=== PATIENT | male | born 1955 | race African-American/Black ===

== ENCOUNTER → 2016-10-19 | Outpatient (CLI) | payer OTHER ==
[2016-10-19 12:01] LABS: Basophils % (A) 1 %; CH 27.1; CHCM 32.4; Eosinophils # (A) 0.1 k/uL (0-0.7); Eosinophils % (A) 2 %; HCT 43.4 % (39.0-53.0); HDW 2.46; HGB 13.9 gm/dL (13.0-17.5); Luc # (Auto) 0.06; Luc % (Auto) 2; Lymphocytes # (A) 1.2 k/uL (1.0-4.8); Lymphocytes % (A) 32 %; MCH 26.9 pg (25.0-35.0); MCV 84.1 fL (80.0-100.0); Mean Platelet Volume 7.1; Monocytes # (A) 0.3 k/uL (0-1.0); Monocytes % (A) 7 %; Neutrophils # (A) 2.1 k/uL (1.3-7.7); Neutrophils % (A) 57 %; RBC 5.17 m/uL (4.30-5.90); RDW 14.4 % (11.5-15.5); WBC 3.7 k/uL (3.8-10.6); WBC (Perox) 3.79
[2016-10-19 12:15] LABS: ALT 33 U/L (21-72); AST 22 U/L (17-59); Alkaline Phosphatase 49 U/L (38-126); Anion Gap 12 mmol/L; Blood Urea Nitrogen 13 mg/dL (9-20); Calcium 9.8 mg/dL (8.4-10.2); Carbon Dioxide 27 mmol/L (22-30); Chloride 102 mmol/L (98-107); Cholesterol 174 mg/dL (<200); Glucose 87 mg/dL (74-99); HDL Cholesterol 70 mg/dL (40-60); Non-African American GFR(MDRD) >60 (>60 ml/min/1.73 sqM); Potassium 4.4 mmol/L (3.5-5.1); Sodium 141 mmol/L (137-145); Total Bilirubin 1.1 mg/dL (0.2-1.3); Total Protein 7.4 g/dL (6.3-8.2); Triglycerides 36 mg/dL (<150)
== END | disposition home or self-care (01) ==
LOC: LABWHC1 11:30
PROVIDERS: ATTEND Family Medicine
DX: I10 Essential (primary) hypertension (principal); Z79.899 Other long term (current) drug therapy; Z13.220 Encounter for screening for lipoid disorders; Z13.29 Encounter for screening for other suspected endocrine disorder; Z12.5 Encounter for screening for malignant neoplasm of prostate
CPT/HCPCS: 80061; 80053; 84443; 85025; 36415; G0103

== ENCOUNTER → 2018-11-21 | Outpatient (CLI) | payer OTHER ==
[2018-11-21 10:54] LABS: Basophils % (A) 0 %; Eosinophils % (A) 1 %; HCT 43.4 % (39.0-53.0); HGB 13.5 gm/dL (13.0-17.5); Lymphocytes # (A) 0.8 k/uL (1.0-4.8); Lymphocytes % (A) 15 %; MCH 25.9 pg (25.0-35.0); MCHC 31.1 g/dL (31.0-37.0); MCV 83.4 fL (80.0-100.0); Mean Platelet Volume 6.7; Monocytes # (A) 0.2 k/uL (0-1.0); Monocytes % (A) 3 %; Neutrophils # (A) 4.2 k/uL (1.3-7.7); Neutrophils % (A) 81 %; Platelet Count 223 k/uL (150-450); RDW 15.9 % (11.5-15.5); WBC 5.2 k/uL (3.8-10.6)
[2018-11-21 16:33] LABS: Albumin 4.4 g/dL (3.80-4.90); Albumin/Globulin Ratio 1.83 (1.60-3.17); Anion Gap 7.2 mmol/L (4.00-12.00); Calcium 9.6 mg/dL (8.7-10.3); Carbon Dioxide 27.8 mmol/L (21.6-31.8); Globulin 2.4 g/dL (1.6-3.3); LDL Cholesterol,Calculated 104.4 mg/dL (0.0-131.0); Potassium 4.3 mmol/L (3.5-5.5); Total Bilirubin 0.8 mg/dL (0.3-1.2); Total Protein 6.8 g/dL (6.2-8.2); VLDL Calculation 11.6 mg/dL (5.00-40.00)
== END ==
LOC: LABWHC1 10:11
PROVIDERS: ATTEND Family Medicine
DX: Z00.00 Encounter for general adult medical examination without abnormal findings (principal); Z13.1 Encounter for screening for diabetes mellitus; Z13.0 Encounter for screening for diseases of the blood and blood-forming organs and certain disorders involving the immune mechanism; Z12.5 Encounter for screening for malignant neoplasm of prostate
CPT/HCPCS: 80061; 80053; 85025; 36415; G0103

== ENCOUNTER 2019-12-14 22:36 | Observation (INO) | payer OTHER ==
[2019-12-14] MEDS ORDERED: ACETAMINOPHEN TAB 500 MG TAB PO STA (22:47)
[2019-12-14] MEDS ORDERED: SODIUM CHLORIDE 0.9% 500 ML 500 ML IV STA (22:47)
--- NOTE | 2019-12-14 23:14 | XR ---
EXAMINATION TYPE: XR chest 1V portable DATE OF EXAM: 12/14/2019 COMPARISON: 04/21/2014 HISTORY: Short of breath TECHNIQUE: FINDINGS: Heart and mediastinum appear normal. Lungs are clear of infiltrate. There is no pleural eff usion or pneumothorax. Bony thorax is intact. IMPRESSION: No active cardiopulmonary disease. Normal heart. No change.
--- NOTE | 2019-12-14 23:16 | ED ---
SOB HPI - General Chief Complaint: Upper Respiratory Infection Stated Complaint: Fever, SOB Time Seen by Provider: 12/14/19 22:47 Source: patient, RN notes reviewed, old records reviewed Mode of arrival: ambulatory Limitations: no limitations - History of Present Illness Initial Comments: This is a 64-year-old male DF for evaluation with history of asthma presents today with fever cough or congestion, patient denying chest pain. Patient has history of asthma patient has no recent travel history or sick contacts he has noted feels like a fever at home with chills facial swelling but no significant shortness of breath. Patient has multiple hospital inpatient admissions prior for similar issues. Patient has hypertension otherwise. No current smoking history. Again patient denies melena similar sick contacts, patient has been doing social isolation. He is increased cough which bili prior asthma exacerbation MD Complaint: shortness of breath, cough -: week(s) Severity: mild Severity scale (1-10): 3 Consistency: intermittent Improves With: rest, bronchodilators Known History Of: COPD, asthma Context: recent URI Associated Symptoms: cough, sputum production Treatments Prior to Arrival: bronchodilator - Related Data Home Medications Medication Instructions Recorded Confirmed Lisinopril [Prinivil] 20 mg PO QAM 06/08/14 09/20/14 amLODIPine [Norvasc] 10 mg PO DAILY 06/27/14 09/20/14 Previous Rx's Medication Instructions Recorded Azithromycin [Zithromax Z-pack] 1 pack PO DIRECTED #6 tab 09/20/14 methylPREDNISolone [Medrol] 1 pack PO DIRECTED #1 tab.ds.pk 09/20/14 Allergies Allergy/AdvReac Type Severity Reaction Status Date / Time No Known Allergies Allergy Verified 12/14/19 22:41 Review of Systems ROS Statement: Those systems with pertinent positive or pertinent negative responses have been documented in the HPI. ROS Other: All systems not noted in ROS Statement are negative. Past Medical History Past Medical History: Hypertension History of Any Multi-Drug Resistant Organisms: None Reported Past Surgical History: Orthopedic Surgery, Tonsillectomy Past Psychological History: No Psychological Hx Reported Smoking Status: Never smoker Past Alcohol Use History: None Reported Past Drug Use History: None Reported General Exam Limitations: no limitations General appearance: alert, in no apparent distress Head exam: Present: atraumatic, normocephalic, normal inspection Eye exam: Present: normal appearance, PERRL, EOMI. Absent: scleral icterus, conjunctival injection, periorbital swelling ENT exam: Present: normal exam, mucous membranes moist Neck exam: Present: normal inspection. Absent: tenderness, meningismus, lymphadenopathy Respiratory exam: Present: wheezes. Absent: normal lung sounds bilaterally, respiratory distress, rales, rhonchi, stridor Cardiovascular Exam: Present: regular rate, normal rhythm, normal heart sounds. Absent: systolic murmur, diastolic murmur, rubs, gallop, clicks GI/Abdominal exam: Present: soft, normal bowel sounds. Absent: distended, tenderness, guarding, rebound, rigid Extremities exam: Present: normal inspection, full ROM, normal capillary refill. Absent: tenderness, pedal edema, joint swelling, calf tenderness Back exam: Present: normal inspection Neurological exam: Present: alert, oriented X3, CN II-XII intact Psychiatric exam: Present: normal affect, normal mood Skin exam: Present: warm, dry, intact, normal color. Absent: rash Course Vital Signs 12/14/19 12/14/19 12/14/19 22:37 23:44 23:59 Temperature 100.5 F H Pulse Rate 75 75 75 Respiratory 18 Rate Blood Pressure 147/91 O2 Sat by Pulse 98 Oximetry - Reevaluation(s) Reevaluation #1: 12/14/19 23:53 Medical records reviewed Reevaluation #2: 12/14/19 23:53 Patient's in no significant acute distress Medical Decision Making - Medical Decision Making 61 female DF for evaluation history of asthma presenting with asthma exa cerbation. Chest x-ray shows no infiltrate pneumonia, no significant acute disease. Patient is given breathing treatment with surrounding with cough and congestion patient has disconcerting absolute neutrophil count / lymphocytes, will admit for observation - Lab Data Result diagrams: 12/14/19 23:20 12/14/19 23:20 Lab Results 12/14/19 12/14/19 12/14/19 Range/Units 23:20 23: 23:20 WBC 3.2 L (3.8-10.6) k/uL RBC 5.29 (4.30-5.90) m/uL Hgb 13.8 (13.0-17.5) gm/dL Hct 42.5 (39.0-53.0) % MCV 80.4 (80.0-100.0) fL MCH 26.1 (25.0-35.0) pg MCHC 32.4 (31.0-37.0) g/dL RDW 14.4 (11.5-15.5) % Plt Count 123 L (150-450) k/uL Neutrophils % 74 % Lymphocytes % 17 % Monocytes % 6 % Eosinophils % 0 % Basophils % 0 % Neutrophils # 2.4 (1.3-7.7) k/uL Lymphocytes # 0.6 L (1.0-4.8) k/uL Monocytes # 0.2 (0-1.0) k/uL Eosinophils # 0.0 (0-0.7) k/uL Basophils # 0.0 (0-0.2) k/uL Sodium 136 L (137-145) mmol/L Potassium 4.0 (3.5-5.1) mmol/L Chloride 103 (98-107) mmol/L Carbon Dioxide 23 (22-30) mmol/L Anion Gap 10 mmol/L BUN 20 (9-20) mg/dL Creatinine 1.03 (0.66-1.25) mg/dL Est GFR (CKD-EPI)AfAm 89 (>60 ml/min/1.73 sqM) Est GFR (CKD-EPI)NonAf 77 (>60 ml/min/1.73 sqM) Glucose 108 H (74-99) mg/dL Plasma Lactic Acid Thien 0.8 (0.7-2.0) mmol/L Calcium 8.4 (8.4-10.2) mg/dL Phosphorus 2.9 (2.5-4.5) mg/dL Magnesium 2.1 (1.6-2.3) mg/dL Total Bilirubin 0.4 (0.2-1.3) mg/dL AST 32 (17-59) U/L ALT 21 (4-49) U/L Alkaline Phosphatase 41 (38-126) U/L Creatine Kinase 79 (55-170) U/L Total Protein 6.8 (6.3-8.2) g/dL Albumin 3.8 (3.5-5.0) g/dL - EKG Data -: EKG Interpreted by Me (EKG shows sinus rhythm rate of 60, NE, QRS 84, QTc 4:30) - Radiology Data Radiology results: report reviewed (Chest x-ray shows no significant acute disease), image reviewed Disposition Clinical Impression: Acute asthma exacerbation, Fever Disposition: ADMITTED IP TO THIS HOSP Condition: Good Instructions (If sedation given, give patient instructions): Asthma (ED) Is patient prescribed a controlled substance at d/c from ED?: No Referrals: Michele Valle MD [Primary Care Provider] - 1-2 days
[2019-12-14] MEDS ORDERED: DEXAMETHASONE SOD PHOSPHATE 10 MG/ML 1 ML VIAL IV STA (23:19)
[2019-12-14] MEDS ORDERED: IPRATROPIUM-ALBUTEROL 3 ML NEB INHALATION STA (23:19)
[2019-12-14 23:57] LABS: Basophils % (A) 0 %; Eosinophils % (A) 0 %; HCT 42.5 % (39.0-53.0); HGB 13.8 gm/dL (13.0-17.5); Lymphocytes # (A) 0.6 k/uL (1.0-4.8); Lymphocytes % (A) 17 %; MCH 26.1 pg (25.0-35.0); MCHC 32.4 g/dL (31.0-37.0); MCV 80.4 fL (80.0-100.0); Mean Platelet Volume 7.4; Monocytes # (A) 0.2 k/uL (0-1.0); Monocytes % (A) 6 %; Neutrophils # (A) 2.4 k/uL (1.3-7.7); Neutrophils % (A) 74 %; Platelet Count 123 k/uL (150-450); RBC 5.29 m/uL (4.30-5.90); RDW 14.4 % (11.5-15.5); WBC 3.2 k/uL (3.8-10.6)
[2019-12-15 00:01] LABS: Albumin 3.8 g/dL (3.5-5.0); Calcium 8.4 mg/dL (8.4-10.2); Magnesium 2.1 mg/dL (1.6-2.3); Phosphorus 2.9 mg/dL (2.5-4.5); Total Bilirubin 0.4 mg/dL (0.2-1.3); Total Protein 6.8 g/dL (6.3-8.2)
[2019-12-15] MEDS ORDERED: AZITHROMYCIN 500 MG in SODIUM CHLORIDE 0.9% 250 ML IVPB STA (00:22)
[2019-12-15] MEDS ORDERED: SODIUM CHLORIDE 0.9% 1,000 ML IV SCH (00:30)
[2019-12-15] MEDS ORDERED: IPRATROPIUM-ALBUTEROL 3 ML NEB INHALATION SCH (08:00)
[2019-12-15 08:08] VITALS: BP 162/86; PULSE 52; RESP 17; TEMP 97.5
[2019-12-15] MEDS ORDERED: ENOXAPARIN 40 MG/0.4 ML SYRINGE SQ SCH (09:00)
[2019-12-15] MEDS ORDERED: amLODIPine 10 MG TAB PO SCH (10:15)
[2019-12-15] MEDS ORDERED: LISINOPRIL 20 MG TAB PO SCH (10:15)
[2019-12-15] MEDS: ALBUTEROL INHALER 60 PUFF/8 GM INHALER (BULK) INHALATION SCH ×2 (10:19)
--- NOTE | 2019-12-15 12:05 | P.CNPUL ---
History of Present Illness Consult date: 12/15/19 Reason for consult: cough, asthma History of present illness: 64-year-old -[place] male patient with known history of bronchial asthma. The patient comes in with increased cough and congestion and low-grade fevers. He was in [place] for the past 1 week and he came back to [facility] yesterday. He was feeling sick during his stay in the [facility] and he felt that he was having symptoms of asthma exacerbation. He typically uses Ventolin rescue inhaler at home. For now, the patient has a low-grade fever of 100.5. In terms of his blood work, the patient has a white cell count of 3.2, platelet count of 123. Electrolytes were all within normal limits. Influenza screen was negative. Troponin is negative. CPK was 79. The patient's chest x- ray is within normal limits. The patient is currently on room air oxygen and the patient's pulse ox is 99%. Review of Systems Constitutional: Reports fatigue, Reports fever Eyes: denies as per HPI, denies blurred vision, denies bulging eye, denies decreased vision, denies diplopia, denies discharge, denies dry eye, denies irritation, denies itching, denies pain, denies photophobia, denies loss of peripheral vision, denies loss of vision, denies tunnel vision/blind spots Ears: deny: decreased hearing, ear discharge, earache, tinnitus Ears, nose, mouth and throat: Denies headache, Denies sore throat Breasts: absent: as per HPI, gynecomastia Cardiovascular: Denies chest pain, Denies shortness of breath Respiratory: Reports cough, Reports dyspnea Gastrointestinal: Denies abdominal pain, Denies diarrhea, Denies nausea, Denies vomiting Genitourinary: Reports as per HPI Musculoskeletal: Reports as per HPI Musculoskeletal: absent: ankle pain, ankle stiffness, ankle swelling Integumentary: Reports as per HPI Neurological: Reports as per HPI Psychiatric: Reports as per HPI Endocrine: Reports as per HPI Hematologic/Lymphatic: Reports as per HPI Allergic/Immunologic: Reports as per HPI Past Medical History Past Medical History: Asthma, Hypertension History of Any Multi-Drug Resistant Organisms: None Reported Past Surgical History: Orthopedic Surgery, Tonsillectomy Additional Past Surgical History / Comment(s): right rotator cuff Past Anesthesia/Blood Transfusion Reactions: No Reported Reaction Past Psychological History: No Psychological Hx Reported Smoking Status: Never smoker Past Alcohol Use History: None Reported Past Drug Use History: None Reported - Past Family History Mother Family Medical History: CVA/TIA, Hypertension, Myocardial Infarction ([place]) Father Family Medical History: Prostate Disorder Medications and Allergies Home Medications Medication Instructions Recorded Confirmed Type Lisinopril [Prinivil] 20 mg PO QAM 06/08/14 12/15/19 History amLODIPine [Norvasc] 10 mg PO DAILY 06/27/14 12/15/19 History Albuterol Inhaler [Ventolin Hfa 1 - 2 puff INHALATION RT-Q6H PRN 12/15/19 12/15/19 History Inhaler] Azithromycin 250 mg PO DAILY 3 Days #3 tab 12/15/19 Rx Famotidine [Pepcid] 20 mg PO BID #30 tablet 12/15/19 Rx Fluticasone/Salmeterol [Airduo 1 puff INHALATION BID #1 device 12/15/19 Rx Respiclick 113-14 Mcg] Ibuprofen [Motrin] 800 mg PO BID PRN 12/15/19 12/15/19 History Allergies Allergy/AdvReac Type Severity Reaction Status Date / Time No Known Allergies Allergy Verified 12/15/19 08:41 Physical Exam Vitals: Vital Signs Temp Pulse Pulse Resp BP BP Pulse Ox 12/15/19 07:00 97.5 F L 52 L 17 162/86 99 12/15/19 02:19 98.6 F 75 15 139/85 98 12/15/19 01:50 98.8 F 68 16 112/77 99 12/14/19 23:59 75 12/14/19 23:44 75 12/14/19 22:37 100.5 F H 75 18 147/91 98 Intake and Output 12/14/19 12/15/19 12/15/19 22:59 06:59 14:59 Other: Voiding Method Toilet Weight 68.946 kg 68.946 kg The patient appeared well nourished and normally developed. Vital signs as documented. Head exam is unremarkable. No scleral icterus or corneal arcus noted. Neck is without jugular venous distension, thyromegaly, or carotid br uits. Carotid upstrokes are brisk bilaterally. Lungs are clear to auscultation and percussion. Cardiac exam reveals the PMI to be normally sized and situated. Rhythm is regular. First and second heart sounds normal. No murmurs, rubs or gallops. Abdominal exam reveals normal bowel sounds, no masses, no organomegaly and no aortic enlargement. Extremities are nonedematous and both femoral and pedal pulses are normal.Examination of the skin revealed no evidence of significant rashes, suspicious appearing nevi or other concerning lesions. Neurologically awake and alert and there is no focal neurological deficits. Results - Laboratory Findings CBC and BMP: 12/14/19 23:20 12/14/19 23:20 Abnormal lab findings: Abnormal Labs 12/14/19 12/14/19 23:20 23:20 WBC 3.2 L Plt Count 123 L Lymphocytes # 0.6 L Sodium 136 L Glucose 108 H - Diagnostic Findings Chest x-ray: image reviewed Assessment and Plan Plan: 1 acute febrile illness with increased cough, highly suspicious for a COVID 19 infection 2 leukopenia/lymphopenia 3 thrombocytopenia 4 chronic bronchial asthma 5 hypertension Plan This presentation is typical for a Covid 19 infection. The patient received a nasal swab and the result is pending for now. Meanwhile, I do not see any reason for this patient to stay in the hospital. No signs of significant respiratory distress. No other significant comorbidities of bronchial asthma and hypertension. No signs of any asthma exacerbation. The patient can be discharged home along with home quarantine and the patient will be informed of the results of the Covid 19 analysis at later stage. Appropriate precautions were given. The patient will be given Airduo as maintenance in addition to Ventolin rescue inhaler and mastoids basis. We'll continue to follow on outpati ent basis. Call back if any worsening.
[2019-12-15 12:36] LABS: C Reactive Protein 30.7 mg/L (<10.0)
--- NOTE | 2019-12-15 14:39 | P.DS ---
Providers Date of admission: 12/15/19 00:22 Attending physician: Phil Deng Consults: 12/15/19 00:20 Consult Physician Routine Consulting Provider: Micaela Doan Consult Reason/Comments: copf Do you want consulting provider notified?: Yes Consult Physician Routine Consulting Provider: Ubaldo [place] Consult Reason/Comments: fever Do you want consulting provider notified?: Yes Primary care physician: [facility] Course: as mentioned in HPI Patient Condition at Discharge: Good Plan - Discharge Summary New Discharge Prescriptions: New Famotidine [Pepcid] 20 mg PO BID #30 tablet Fluticasone/Salmeterol [Airduo Respiclick 113-14 Mcg] 1 puff INHALATION BID #1 device Azithromycin 250 mg PO DAILY 3 Days #3 tab No Action Lisinopril [Prinivil] 20 mg PO QAM amLODIPine [Norvasc] 10 mg PO DAILY Ibuprofen [Motrin] 800 mg PO BID PRN PRN Reason: Pain Albuterol Inhaler [Ventolin Hfa Inhaler] 1 - 2 puff INHALATION RT-Q6H PRN PRN Reason: Shortness Of Breath Discharge Medication List Lisinopril [Prinivil] 20 mg PO QAM 06/08/14 [History] amLODIPine [Norvasc] 10 mg PO DAILY 06/27/14 [History] Albuterol Inhaler [Ventolin Hfa Inhaler] 1 - 2 puff INHALATION RT-Q6H PRN 12/15/19 [History] Azithromycin 250 mg PO DAILY 3 Days #3 tab 12/15/19 [Rx] Famotidine [Pepcid] 20 mg PO BID #30 tablet 12/15/19 [Rx] Fluticasone/Salmeterol [Airduo Respiclick 113-14 Mcg] 1 puff INHALATION BID #1 device 12/15/19 [Rx] Ibuprofen [Motrin] 800 mg PO BID PRN 12/15/19 [History] Follow up Appointment(s)/Referral(s): Michele Valle MD [Primary Care Provider] - 12/21/19 2:45 pm Patient Instructions/Handouts: Asthma (ED) Discharge Disposition: HOME SELF-CARE
--- NOTE | 2019-12-15 14:39 | P.HPIM ---
History of Present Illness 63-year-old pleasant gentleman came in at the complaints of shortness of breathcough congestion. also had low-grade fever patient recently visited [facility] in there for 5 days was not in contact with any with sick people there as far as he now patient is found to be in asthma exacerbation which improved without any systemic steroids. Patient is clinically doing well, with 19 testing was ordered and patient will be discharged with instructions of isolation and will not require any systemic steroids at this time. Patient will be discharged on inhaled steroids inhalational treatments and azithromycin for 3 days patient denied any significant sputum production Review of Systems REVIEW OF SYSTEMS: CONSTITUTIONAL: No fever, no malaise, no fatigue. HEENT: No recent visual problems or hearing problems. Denied any sore throat. CARDIOVASCULAR: No chest pain, orthopnea, PND, no palpitations, no syncope. PULMONARY: as mentioned in HPI. GASTROINTESTINAL: No diarrhea, no nausea, no vomiting, no abdominal pain. NEUROLOGICAL: No headaches, no weakness, no numbness. HEMATOLOGICAL: Denies any bleeding or petechiae. GENITOURINARY: Denies any burning micturition, frequency, or urgency. MUSCULOSKELETAL/RHEUMATOLOGICAL: Denies any joint pain, swelling, or any muscle pain. ENDOCRINE: Denies any polyuria or polydipsia. The rest of the 14-point review of systems is negative. Past Medical History Past Medical History: Asthma, Hypertension History of Any Multi-Drug Resistant Organisms: None Reported Past Surgical History: Orthopedic Surgery, Tonsillectomy Additional Past Surgical History / Comment(s): right rotator cuff Past Anesthesia/Blood Transfusion Reactions: No Reported Reaction Past Psychological History: No Psychological Hx Reported Smoking Status: Never smoker Past Alcohol Use History: None Reported Past Drug Use History: None Reported - Past Family History Mother Family Medical History: CVA/TIA, Hypertension, Myocardial Infarction ([place]) Father Family Medical History: Prostate Disorder Medications and Allergies Home Medications Medication Instructions Recorded Confirmed Type Lisinopril [Prinivil] 20 mg PO QAM 06/08/14 12/15/19 History amLODIPine [Norvasc] 10 mg PO DAILY 06/27/14 12/15/19 History Albuterol Inhaler [Ventolin Hfa 1 - 2 puff INHALATION RT-Q6H PRN 12/15/19 12/15/19 History Inhaler] Azithromycin 250 mg PO DAILY 3 Days #3 tab 12/15/19 Rx Famotidine [Pepcid] 20 mg PO BID #30 tablet 12/15/19 Rx Fluticasone/Salmeterol [Airduo 1 puff INHALATION BID #1 device 12/15/19 Rx Respiclick 113-14 Mcg] Ibuprofen [Motrin] 800 mg PO BID PRN 12/15/19 12/15/19 History Allergies Allergy/AdvReac Type Severity Reaction Status Date / Time No Known Allergies Allergy Verified 12/15/19 08:41 Physical Exam Vitals: Vital Signs Temp Pulse Pulse Resp BP BP Pulse Ox 12/15/19 07:00 97.5 F L 52 L 17 162/86 99 12/15/19 02:19 98.6 F 75 15 139/85 98 12/15/19 01:50 98.8 F 68 16 112/77 99 12/14/19 23:59 75 12/14/19 23:44 75 12/14/19 22:37 100.5 F H 75 18 147/91 98 Intake and Output 12/14/19 12/15/19 12/15/19 22:59 06:59 14:59 Other: Voiding Method Toilet Weight 68.946 kg 68.946 kg PHYSICAL EXAMINATION: GENERAL: The patient is alert and oriented x3, not in any acute distress. Well developed, well nourished. HEENT: Pupils are round and equally reacting to light. EOMI. No scleral icterus. No conjunctival pallor. Normocephalic, atraumatic. No pharyngeal erythema. No thyromegaly. CARDIOVASCULAR: S1 and S2 present. No murmurs, rubs, or gallops. PULMONARY: Chest is clear to auscultation, no wheezing or crackles. ABDOMEN: Soft, nontender, nondistended, normoactive bowel sounds. No palpable organomegaly. MUSCULOSKELETAL: No joint swelling or deformity. EXTREMITIES: No cyanosis, clubbing, or pedal edema. NEUROLOGICAL: Gross neurological examination did not reveal any focal deficits. SKIN: No rashes. Results CBC & Chem 7: 12/14/19 23:20 12/14/19 23:20 Labs: Abnormal Lab Results - Last 24 Hours (Table) 12/14/19 12/14/19 12/15/19 Range/Units 23:20 23:20 11:13 WBC 3.2 L (3.8-10.6) k/uL Plt Count 123 L (150-450) k/uL Lymphocytes # 0.6 L (1.0-4.8) k/uL Sodium 136 L (137-145) mmol/L Glucose 108 H (74-99) mg/dL C-Reactive Protein 30.7 H (<10.0) mg/L Thrombosis Risk Factor Assmnt - Choose All That Apply Each Factor Represents 1 point: Abnormal pulmonary function (COPD) Each Risk Factor Represents 2 Points: Age 61-74 years Thrombosis Risk Factor Assessment Total Risk Factor Score: 3 Thrombosis Risk Factor Assessment Level: Moderate Risk Assessment and Plan Plan: 1 acute as upper respiratory tract symptoms and febrile illness patient is being tested for COVID 19 -asthma with acute exacerbation improved now management as mentioned above p atient discharge and his steroids inhalational treatments -Hypertension
[2019-12-15 18:38] LABS: Ferritin 204.6 ng/mL (22.0-322.0)
[2019-12-15] MEDS ORDERED: AZITHROMYCIN 500 MG in SODIUM CHLORIDE 0.9% 250 ML IVPB SCH (21:00)
--- NOTE | 2019-12-20 10:19 | CDI ---
Date: 12/20/19 Equal Opportunity Assistant: SERA Piper Deborah Biskner, Fuel Cell Test Engineer PH: If you have any questions about this query, please contact Yoselin Edmondson, Fuel Cell Test Engineer, at between 8 am and 5 pm. Visit Number: [id number] Admit date: 12/15/19 Discharge date 12/15/19 Patient Name: MinaGallo Dr., Patient presented with acute upper respiratory tract symptoms and was tested for Covid 19. Coronavirus SARS CoV-2 detected is documented in the laboratory results. Patient history and risk factors: COPD, asthma Clinical indicators: Shortness of breath, fever and asthma exacerbation CXR: Lungs are clear. Heart and mediastinum appear normal. Treatment: Hydration, Decadron, Azomycin. In order to capture the severity of condition, please clarify if the above treatment/clinical indicators signify: COVID-19 suspected COVID-19 ruled out COVID-19 confirmed Other, please specify Unable to determine Unable to determine. This query he's not necessary MTDD
== END 2019-12-15 16:07 | disposition home or self-care (01) ==
LOC: EC 22:36 → 4SSUR 12-15 00:22
PROVIDERS: ADMIT Hospitalist; ATTEND Hospitalist
DX: J45.901 Unspecified asthma with (acute) exacerbation (principal); I10 Essential (primary) hypertension; Z79.899 Other long term (current) drug therapy; Z82.49 Family history of ischemic heart disease and other diseases of the circulatory system; B97.29 Other coronavirus as the cause of diseases classified elsewhere
CPT/HCPCS: 96365; 96376; 96360; 99283; 36415; 94640 ×3; 93005; 85379; 80053; 82728; 82550; 83605; 83615; 83735; 84100; 84484; 85025; 86140; 87502; 84145; 71045; G0378; U0002; J1100; J0456

== ENCOUNTER 2021-04-03 15:50 | Emergency (ER) | payer MEDICARE, OTHER ==
[2021-04-03 15:59] VITALS: BP 130/74; PULSE 56; RESP 18; TEMP 97.8
[2021-04-03] MEDS ORDERED: CARBAMIDE PEROXIDE 6.5% DROPS 15 ML BTL RIGHT EAR STA (16:34)
--- NOTE | 2021-04-03 17:36 | ED ---
ENT HPI - General Source: patient Mode of arrival: ambulatory Limitations: no limitations <Cinthya Ojeda - Last Filed: 04/03/21 23:49> <Divine Simpson - Last Filed: 04/04/21 01:07> - General Chief complaint: ENT Stated complaint: Ear pain Time Seen by Provider: 04/03/21 16:19 - History of Present Illness Initial comments: 66 year-old male patient presents for diminished hearing and right ear pain. States he is having mild pain on the left. Denies any drainage. Denies using any q-tips. Denies fever or chills. Does not have diabetes. Denies history of ear infection. No other symptoms or concerns. (Cinthya Ojeda) - Related Data Home Medications Medication Instructions Recorded Confirmed Lisinopril [Prinivil] 20 mg PO QAM 06/08/14 12/15/19 amLODIPine [Norvasc] 10 mg PO DAILY 06/27/14 12/15/19 Albuterol Inhaler (Mhu) [Ventolin 1 - 2 puff INHALATION RT-Q6H PRN 12/15/19 12/15/19 Hfa Inhaler] Ibuprofen [Motrin] 800 mg PO BID PRN 12/15/19 12/15/19 Previous Rx's Medication Instructions Recorded Azithromycin 250 mg PO DAILY 3 Days #3 tab 12/15/19 Famotidine [Pepcid] 20 mg PO BID #30 tablet 12/15/19 Fluticasone/Salmeterol [Airduo 1 puff INHALATION BID #1 device 12/15/19 Respiclick 113-14 Mcg] Allergies Allergy/AdvReac Type Severity Reaction Status Date / Time No Known Allergies Allergy Verified 04/03/21 15:59 Review of Systems ROS Other: All systems not noted in ROS Statement are negative. <Cinthya Ojeda - Last Filed: 04/03/21 23:49> ROS Other: All systems not noted in ROS Statement are negative. <Divine Simpson - Last Filed: 04/04/21 01:07> ROS Statement: Those systems with pertinent positive or pertinent negative responses have been documented in the HPI. Past Medical History Past Medical History: Asthma, Hypertension History of Any Multi-Drug Resistant Organisms: None Reported Past Surgical History: Orthopedic Surgery, Tonsillectomy Additional Past Surgical History / Comment(s): right rotator cuff Past Anesthesia/Blood Transfusion Reactions: No Reported Reaction Past Psychological History: No Psychological Hx Reported Smoking Status: Current some day smoker Past Alcohol Use History: None Reported Past Drug Use History: None Reported - Past Family History Mother Family Medical History: CVA/TIA, Hypertension, Myocardial Infarction ([place]) Father Family Medical History: Prostate Disorder <Cinthya Ojeda - Last Filed: 04/03/21 23:49> General Exam Limitations: no limitations General appearance: alert, in no apparent distress ENT exam: Present: normal exam, normal oropharynx, mucous membranes moist. Absent: TM's normal bilaterally (Right tympanic membrane is obscured due to cerumen impaction area canal appears intact. Left tympanic membranes is normal.) Respiratory exam: Present: normal lung sounds bilaterally. Absent: respiratory distress, wheezes, rales, rhonchi, stridor Cardiovascular Exam: Present: regular rate, normal rhythm, normal heart sounds. Absent: systolic murmur, diastolic murmur, rubs, gallop, clicks Neurological exam: Present: alert, oriented X3, CN II-XII intact Psychiatric exam: Present: normal affect, normal mood Skin exam: Present: warm, dry, intact, normal color. Absent: rash <Cinthya Ojeda - Last Filed: 04/03/21 23:49> Course Vital Signs 04/03/21 15:56 Temperature 97.8 F Pulse Rate 56 L Respiratory 18 Rate Blood Pressure 130/74 O2 Sat by Pulse 100 Oximetry Procedures <Cinthya Ojeda - Last Filed: 04/03/21 23:49> - Procedures Initial comment: Performed left and right ear irrigation. Irrigated with warm water, large cerumen impaction dislodged from the right ear canal. Patient tolerated the procedure well. (Cinthya Ojeda) Medical Decision Making <Cinthya Ojeda - Last Filed: 04/03/21 23:49> <Divine Simpson - Last Filed: 04/04/21 01:07> - Medical Decision Making 66-year-old male patient presented for evaluation of diminished hearing and pain to the right ear. Had some mild pain to the left. Physical examination did reveal cerumen impaction on the right, presence of cerumen on the left but no impaction. Debrox drops were placed in the right for approximately 20-30 minutes. I did perform ear irrigation did dislodge a large piece of cerumen. Patient is not able to hear. States pain is improved. He requested flushing of the left ear which I did, states he feels much better and is comfortable being discharged. He is instructed to follow-up with his primary care physician for recheck in 1-2 days. Return parameters were discussed in detail. He verbalizes understanding and agrees with this plan. My attending is Dr. Simpson. (Cinthya Ojeda) I was available for consultation in the emergency department. The history and physical exam were done by the midlevel provider. I was consulted for this patients care. I reviewed the case with the midlevel provider and based on their presentation of the patient, I agree with the assessment, medical decision making and plan of care as documented. Chart was dictated using [employer] dictation software. Attempts were made to correct any dictation errors however some typographical errors may persist. (Divine Simpson) Disposition Is patient prescribed a controlled substance at d/c from ED?: No Time of Disposition: 17:36 <Cinthya Ojeda - Last Filed: 04/03/21 23:49> <Divine Simpson - Last Filed: 04/04/21 01:07> Clinical Impression: Right ear impacted cerumen Disposition: HOME SELF-CARE Condition: Good Instructions (If sedation given, give patient instructions): Cerumen Impaction (ED) Additional Instructions: Use eardrops 5 drops once per week. Follow-up through primary care physician for recheck in 1-2 days. Return for any new, worsening, or concerning symptoms. Referrals: Michele Valle MD [Primary Care Provider] - 1-2 days
== END 2021-04-03 18:08 | disposition home or self-care (01) ==
LOC: EC 15:50
DX: H61.21 Impacted cerumen, right ear (principal); I10 Essential (primary) hypertension; J45.909 Unspecified asthma, uncomplicated; F17.200 Nicotine dependence, unspecified, uncomplicated; Z82.49 Family history of ischemic heart disease and other diseases of the circulatory system; Z79.51 Long term (current) use of inhaled steroids; Z79.1 Long term (current) use of non-steroidal anti-inflammatories (NSAID)
CPT/HCPCS: 69209; 99282

== ENCOUNTER → 2022-06-21 | Outpatient (CLI) | payer MEDICARE, OTHER ==
[2022-06-21 14:29] LABS: Basophils # (A) 0.02 X 10*3/uL (0.00-0.10); Basophils % (A) 0.5 %; Eosinophils # (A) 0.12 X 10*3/uL (0.04-0.35); Eosinophils % (A) 2.9 %; HCT 43.8 % (39.6-50.0); HGB 13.9 g/dL (13.0-17.0); Immature Grans, Automated 0 %; Lymphocytes # (A) 1.68 X 10*3/uL (0.90-5.00); MCH 26.1 pg (27.0-32.0); MCHC 31.7 g/dL (32.0-37.0); MCV 82.2 fL (80.0-97.0); Mean Platelet Volume 9.5 fL (9.5-12.2); Monocytes # (A) 0.38 X 10*3/uL (0.20-1.00); NRBC Per 100 WBC 0 /100 WBCS (0.0-0.0); Neutrophils % (A) 47.6 %; Platelet Count 236 X 10*3/uL (140-440); RBC 5.33 X 10*6/uL (4.40-5.60); RDW 14.4 % (11.5-14.5)
[2022-06-21 14:30] LABS: African American GFR (CKD) 66.5 (60.0-200.0); Albumin 4.4 g/dL (3.8-4.9); Albumin/Globulin Ratio 1.52 (1.60-3.17); Anion Gap 8.4 mmol/L (10.00-18.00); BUN/Creat Ratio 15.19 Ratio (12.00-20.00); Blood Urea Nitrogen 19.6 mg/dL (9.0-27.0); Calcium 9.5 mg/dL (8.7-10.3); Carbon Dioxide 28.3 mmol/L (20.0-27.5); Globulin 2.9 g/dL (1.6-3.3); HDL Cholesterol 53.2 mg/dL (40.00-60.00); Non-African American GFR(CKD) 57.4 (60.0-200.0); Potassium 4.4 mmol/L (3.5-5.5); Total Bilirubin 1.3 mg/dL (0.30-1.20); Total Protein 7.3 g/dL (6.2-8.2); Triglycerides 46.3 mg/dL (0.00-149.00)
[2022-06-21 14:43] LABS: Chol/HDL Ratio 3.35 Ratio
== END | disposition home or self-care (01) ==
LOC: LABWHC1 09:57
PROVIDERS: ATTEND Surgery Plastic and Reconstructive Surgery
DX: I10 Essential (primary) hypertension (principal)
CPT/HCPCS: 36415; 80053; 80061; 83036; 83721; 85025

== ENCOUNTER 2022-08-03 13:20 | Emergency (ER) | payer MEDICARE, OTHER ==
[2022-08-03 13:25] VITALS: BP 157/98; PULSE 75; RESP 18; TEMP 98.8
--- NOTE | 2022-08-03 17:08 | ED ---
Fever HPI - General Chief Complaint: Fever Stated Complaint: fever Time Seen by Provider: 08/03/22 15:54 Source: patient Mode of arrival: ambulatory Limitations: no limitations - History of Present Illness Initial Comments: Patient is a 67-year-old male with a past medical history asthma hypertension who presents to the emergency department with a chief complaint of subjective fever. Patient states for the past days his feet have felt hot intermittently since yesterday. Patient felt that it was due to fever however he did not take his temperature. He denies chills. He denies swelling, pain, numbness, tingling of the lower extremities and feet. Denies leg weakness. Took Tylenol prior to arrival. Denies upper respiratory symptoms, cough, shortness of breath. - Related Data Home Medications Medication Instructions Recorded Confirmed lisinopriL [Prinivil] 20 mg PO QAM 06/08/14 12/15/19 amLODIPine [Norvasc] 10 mg PO DAILY 06/27/14 12/15/19 Albuterol Inhaler [Ventolin Hfa 1 - 2 puff INHALATION RT-Q6H PRN 12/15/19 12/15/19 Inhaler] Ibuprofen [Motrin] 800 mg PO BID PRN 12/15/19 12/15/19 Previous Rx's Medication Instructions Recorded Azithromycin 250 mg PO DAILY 3 Days #3 tab 12/15/19 Famotidine [Pepcid] 20 mg PO BID #30 tablet 12/15/19 Fluticasone Propion/Salmeterol 1 puff INHALATION BID #1 device 12/15/19 [Airduo Respiclick 113-14 Mcg] Allergies Allergy/AdvReac Type Severity Reaction Status Date / Time No Known Allergies Allergy Verified 08/03/22 13:25 Review of Systems ROS Statement: Those systems with pertinent positive or pertinent negative responses have been documented in the HPI. ROS Other: All systems not noted in ROS Statement are negative. Past Medical History Past Medical History: Asthma, Hypertension History of Any Multi-Drug Resistant Organisms: None Reported Past Surgical History: Orthopedic Surgery, Tonsillectomy Additional Past Surgical History / Comment(s): right rotator cuff Past Anesthesia/Blood Transfusion Reactions: No Reported Reaction Past Psychological History: No Psychological Hx Reported Smoking Status: Current some day smoker, Former smoker Past Alcohol Use History: None Reported Past Drug Use History: None Reported - Past Family History Mother Family Medical History: CVA/TIA, Hypertension, Myocardial Infarction ([place]) Father Family Medical History: Prostate Disorder General Exam Limitations: no limitations General appearance: alert, in no apparent distress Head exam: Present: atraumatic, normocephalic, normal inspection Respiratory exam: Present: normal lung sounds bilaterally. Absent: respiratory distress, wheezes, rales, rhonchi, stridor Cardiovascular Exam: Present: regular rate, normal rhythm, normal heart sounds. Absent: systolic murmur, diastolic murmur, rubs, gallop, clicks GI/Abdominal exam: Present: soft, normal bowel sounds. Absent: distended, tenderness, guarding, rebound, rigid Extremities exam: Present: normal inspection (bunyons b/l), full ROM, normal capillary refill, pedal edema, joint swelling. Absent: tenderness, calf tenderness Neurological exam: Present: alert, oriented X3, CN II-XII intact Psychiatric exam: Present: normal affect, normal mood Skin exam: Present: warm, dry, intact, normal color. Absent: rash Course Vital Signs 08/03/22 13:21 Temperature 98.8 F Pulse Rate 75 Respiratory 18 Rate Blood Pressure 157/98 O2 Sat by Pulse 100 Oximetry Medical Decision Making - Medical Decision Making This a 67-year-old male presenting with subjective fever. Patient afebrile. He looks well. No evidence of lower extremity cellulitis on physical exam. COVID-19 and influenza are not detected. Patient to follow-up with primary care provider regarding this issue. Dr. Schmitd is my attending. - Lab Data Lab Results 08/03/22 08/03/22 Range/Units 16:12 16:12 Coronavirus (PCR) Not Detected (Not Detectd) Influenza Type A RNA Not Detected (Not Detectd) Influenza Type B (PCR) Not Detected (Not Detectd) Disposition Clinical Impression: Subjective fever Disposition: HOME SELF-CARE Condition: Good Instructions (If sedation given, give patient instructions): Fever in Adults (ED) Additional Instructions: Please follow up with your primary care provider in one to 2 days. Return to the emergency department if you experience new, concerning, or worsening symptoms. Is patient prescribed a controlled substance at d/c from ED?: No Referrals: Michele Valle MD [Primary Care Provider] - 1-2 days Time of Disposition: 17:08
== END 2022-08-03 18:24 | disposition home or self-care (01) ==
LOC: EC 13:20
DX: R50.9 Fever, unspecified (principal); J45.909 Unspecified asthma, uncomplicated; I10 Essential (primary) hypertension; F17.200 Nicotine dependence, unspecified, uncomplicated; Z20.822 Contact with and (suspected) exposure to COVID-19; Z79.51 Long term (current) use of inhaled steroids; Z79.899 Other long term (current) drug therapy
CPT/HCPCS: 87502; 87635; 99283

== ENCOUNTER → 2022-11-30 | Outpatient (CLI) | payer MEDICARE, OTHER ==
[2022-11-30 12:00] LABS: Basophils # (A) 0.02 X 10*3/uL (0.00-0.10); Basophils % (A) 0.5 %; Eosinophils % (A) 2.4 %; HCT 42.8 % (39.6-50.0); HGB 13.5 g/dL (13.0-17.0); Immature Grans, Automated 0.2 %; Lymphocytes # (A) 1.89 X 10*3/uL (0.90-5.00); Lymphocytes % (A) 45.9 %; MCHC 31.5 g/dL (32.0-37.0); MCV 82.5 fL (80.0-97.0); Mean Platelet Volume 9.4 fL (9.5-12.2); Monocytes # (A) 0.38 X 10*3/uL (0.20-1.00); Monocytes % (A) 9.2 %; NRBC Per 100 WBC 0 /100 WBCS (0.0-0.0); Neutrophils # (A) 1.72 X 10*3/uL (1.80-7.70); Neutrophils % (A) 41.8 %; Platelet Count 229 X 10*3/uL (140-440); RBC 5.19 X 10*6/uL (4.40-5.60); RDW 14.6 % (11.5-14.5); WBC 4.12 X 10*3/uL (4.50-10.00)
[2022-11-30 12:06] LABS: ALT 13 U/L (10-49); AST 16 U/L (14-35); African American GFR (CKD) 72.6 (60.0-200.0); Albumin 4.3 g/dL (3.8-4.9); Albumin/Globulin Ratio 1.81 (1.60-3.17); Alkaline Phosphatase 45 U/L (41-126); BUN/Creat Ratio 12.92 Ratio (12.00-20.00); Blood Urea Nitrogen 15.5 mg/dL (9.0-27.0); Calcium 9.3 mg/dL (8.7-10.3); Carbon Dioxide 30.4 mmol/L (20.0-27.5); Chloride 103 mmol/L (96-109); Chol/HDL Ratio 3.24 Ratio; Globulin 2.4 g/dL (1.6-3.3); Glucose 88 mg/dL (70-110); LDL Cholesterol,Calculated 126.3 mg/dL (0.0-131.0); Non-African American GFR(CKD) 62.6 (60.0-200.0); Sodium 140 mmol/L (135-145); Total Protein 6.7 g/dL (6.2-8.2)
== END | disposition home or self-care (01) ==
LOC: LABWHC1 08:07
PROVIDERS: ATTEND Physician Assistant
DX: I10 Essential (primary) hypertension (principal); Z79.899 Other long term (current) drug therapy; R73.9 Hyperglycemia, unspecified
CPT/HCPCS: 36415; 80053; 80061; 83036; 85025

== ENCOUNTER 2023-07-24 07:48 | Day surgery (SDC) | payer MEDICARE, OTHER ==
--- NOTE | 2023-07-24 07:03 | P.GSHP ---
History of Present Illness H&P Date: 07/24/23 CHIEF COMPLAINT: Colon screen HISTORY OF PRESENT ILLNESS: The patient is a 68-year-old male who presents for colon screen. Lower endoscopy was offered for further evaluation and management. PAST MEDICAL HISTORY: Please see list. PAST SURGICAL HISTORY: Please see list. MEDICATIONS: Please see list. ALLERGIES: Please see list. SOCIAL HISTORY: No illicit drug use FAMILY HISTORY: No reports of Crohn disease or ulcerative colitis. REVIEW OF ORGAN SYSTEMS: CONSTITUTIONAL: No reports of fevers or chills. PHYSICAL EXAM: VITAL SIGNS: Stable GENERAL: Well-developed pleasant in no acute distress. HEENT: No scleral icterus. Extraocular movements grossly intact. Moist buccal mucosa. NECK: Supple without lymphadenopathy. CHEST: Unlabored respirations. Equal bilateral excursions. CARDIOVASCULAR: Regular rate and rhythm. Distal 2+ pulses. ABDOMEN: Soft, nontender, nondistended. MUSCULOSKELETAL: No clubbing, cyanosis, or edema. ASSESSMENT: 1. Colon screen. PLAN: 1. Recommend proceeding with a lower endoscopy Past Medical History Past Medical History: Asthma, Hypertension History of Any Multi-Drug Resistant Organisms: None Reported Past Surgical History: Orthopedic Surgery, Tonsillectomy Additional Past Surgical History / Comment(s): right rotator cuff Past Anesthesia/Blood Transfusion Reactions: No Reported Reaction Smoking Status: Never smoker - Past Family History Mother Family Medical History: CVA/TIA, Hypertension, Myocardial Infarction ([place]) Father Family Medical History: Prostate Disorder Medications and Allergies Home Medications Medication Instructions Recorded Confirmed Type lisinopriL [Prinivil] 20 mg PO QAM 06/08/14 07/21/23 History amLODIPine [Norvasc] 10 mg PO QAM 06/27/14 07/21/23 History Allergies Allergy/AdvReac Type Severity Reaction Status Date / Time Latex, Natural Rubber AdvReac Itching Verified 08/19/22 14:52
[2023-07-24] MEDS: LACTATED RINGERS 1,000 ML IV SCH ×2 (08:16→08:29)
[2023-07-24 08:25] VITALS: RESP 16; TEMP 98.1
[2023-07-24] MEDS ORDERED: PROPOFOL 10 MG/ML 20 ML VIAL IV ONE (08:31)
--- NOTE | 2023-07-24 08:52 | P.PCN ---
Date of Procedure: 07/24/23 Description of Procedure: PREOPERATIVE DIAGNOSIS: Personal history of colon polyps Family history malignant colon polyps Colonoscopy screening POSTOPERATIVE DIAGNOSIS: Tubular adenoma cecum Internal hemorrhoids, grade 2 OPERATION: Colonoscopy to the ileocecal valve and appendiceal orifice, cecum Colonoscopy with hot snare polypectomy SURGEON: Berna Yost MD. ANESTHESIA: MAC. INDICATIONS: The patient is an 68-year-old male who presents family history of malignant colon polyps and personal history of colon polyps. Last colonoscopy 5 years. Benefits and risks were described and informed consent was obtained. DESCRIPTION OF PROCEDURE: The patient had undergone Golytely prep. The patient had been brought into the operating room and laid in the left lateral decubitus position. After adequate intravenous sedation, the rectum was examined with 2% lidocaine jelly. The prostate was unremarkable. External hemorrhoids were encountered. The rectal tone was within normal limits. No lesions were palpated in the rectal vault. An Olympus colonoscope was advanced until the cecum, ileocecal valve and appendiceal orifice were clearly viewed. The prep was good. No sigmoid diverticulosis was encountered. Colonic polyps were found and removed. No evidence of focal colitis was found. Retroflexion of the scope demonstrated grade 2 internal hemorrhoids without active bleeding or inflammation. The colon was desufflated. The patient had tolerated the procedure well. Withdrawal time was over 6 minutes. FINDINGS: Aronchick preparation quality scale 1+ (1-5) Internal hemorrhoids, grade 2 External hemorrhoids, grade 2. No arteriovenous malformations. No sigmoid diverticulosis Removal of 1 polyp: - Snare polypectomy at cecum, 8 mm adenoma No focal colitis. RECOMMENDATIONS: Repeat colonoscopy 3 years2025 Plan - Discharge Summary Discharge Rx Participant: No New Discharge Prescriptions: Continue lisinopriL [Prinivil] 20 mg PO QAM amLODIPine [Norvasc] 10 mg PO QAM Discharge Medication List lisinopriL [Prinivil] 20 mg PO QAM 06/08/14 [History] amLODIPine [Norvasc] 10 mg PO QAM 06/27/14 [History] Follow up Appointment(s)/Referral(s): Berna Yost MD [STAFF PHYSICIAN] - As Needed Patient Instructions/Handouts: Colorectal Polyps (GEN) Activity/Diet/Wound Care/Special Instructions: Repeat colonoscopy in 3 years2025 Discharge Disposition: HOME SELF-CARE
[2023-07-24 09:46] VITALS: BP 154/84; PULSE 51
== END 2023-07-24 09:25 | disposition home or self-care (01) ==
LOC: ORWHC2ENDO 07:48
PROVIDERS: ATTEND Surgery Plastic and Reconstructive Surgery
DX: Z12.11 Encounter for screening for malignant neoplasm of colon (principal); D12.0 Benign neoplasm of cecum; K64.1 Second degree hemorrhoids; J45.909 Unspecified asthma, uncomplicated; I10 Essential (primary) hypertension; Z98.890 Other specified postprocedural states; Z80.0 Family history of malignant neoplasm of digestive organs; Z86.010 Personal history of colon polyps; Z91.040 Latex allergy status; Z79.899 Other long term (current) drug therapy
CPT/HCPCS: 88305; 45385; J2704

== ENCOUNTER → 2023-11-19 | Outpatient (CLI) | payer MEDICARE, OTHER ==
[2023-11-19 11:42] LABS: Basophils # (A) 0.02 X 10*3/uL (0.00-0.10); Basophils % (A) 0.4 %; Eosinophils # (A) 0.11 X 10*3/uL (0.04-0.35); Eosinophils % (A) 2.1 %; HCT 40.7 % (39.6-50.0); HGB 13.2 g/dL (13.0-17.0); Lymphocytes % (A) 30.7 %; MCH 26.4 pg (27.0-32.0); MCHC 32.4 g/dL (32.0-37.0); MCV 81.4 FL (80.0-97.0); Mean Platelet Volume 9.5 FL (9.5-12.2); Monocytes # (A) 0.42 X 10*3/uL (0.20-1.00); Monocytes % (A) 8.1 %; NRBC Per 100 WBC 0 X 10*3/uL (0.00-0.01); Neutrophils # (A) 3.05 X 10*3/uL (1.80-7.70); Neutrophils % (A) 58.5 %; Platelet Count 247 X 10*3/uL (140-440); RDW 15.2 % (11.5-14.5); WBC 5.21 X 10*3/uL (4.50-10.00)
[2023-11-19 18:22] LABS: ALT 8 U/L (10-49); AST 14 U/L (14-35); Albumin 4.1 g/dL (3.8-4.9); Albumin/Globulin Ratio 1.64 Ratio (1.60-3.17); Alkaline Phosphatase 57 U/L (41-126); Blood Urea Nitrogen 18.7 mg/dL (9.0-27.0); Calcium 9.5 mg/dL (8.7-10.3); Carbon Dioxide 25.9 mmol/L (21.6-31.8); Chloride 105 mmol/L (96-109); Chol/HDL Ratio 3.11 Ratio; Globulin 2.5 g/dL (1.6-3.3); Glucose 94 mg/dL (70-110); LDL Cholesterol,Calculated 99.2 mg/dL (0.0-131.0); Potassium 4.2 mmol/L (3.5-5.5); Prostate Specific Antigen 4.32 ng/mL (0.000-4.500); Sodium 140 mmol/L (135-145); Total Bilirubin 0.7 mg/dL (0.3-1.2); Total Protein 6.6 g/dL (6.2-8.2); VLDL Calculation 12.12 mg/dL (5.00-40.00)
== END | disposition home or self-care (01) ==
LOC: LABWHC1 08:50
PROVIDERS: ATTEND Family Medicine
DX: Z00.00 Encounter for general adult medical examination without abnormal findings (principal); Z13.1 Encounter for screening for diabetes mellitus; Z13.220 Encounter for screening for lipoid disorders; I10 Essential (primary) hypertension; Z79.899 Other long term (current) drug therapy; R97.20 Elevated prostate specific antigen [PSA]
CPT/HCPCS: 36415; 80053; 80061; 84153; 85025

== ENCOUNTER → 2024-12-14 | Outpatient (CLI) | payer MEDICARE ==
--- NOTE | 2024-12-14 09:42 | MR ---
EXAMINATION TYPE: MR Prostate wo/w con DATE OF EXAM: 12/14/2024 8:52 AM COMPARISON: None. CLINICAL INDICATION: Male, 69 years old with history of R97.20 ELEVATED PROSTATE SPECIFIC ANTIGEN [PS A]; Elevated PSA TECHNIQUE: Multi-planar, multi-sequence imaging of the pelvis is performed prior to and following the uncomplicated administration of bolus intravenous gadolinium. IV Contrast: 6.5 mL Gadobutrol Interpretive Criteria: PI-RADS v2.1 SERUM PSA: =5.7 11/2024=5.83 SURGICAL PATHOLOGY: No data available. FINDINGS: Prostatic dimensions: 5.1 x 5.7 x 4.7 cm. Ellipsoid Volume:71.54 (PSA density=0.08 ng/mL/mL) CENTRAL GLAND (Central and Transition Zones/CZ+TZ): Multiple bilateral, heterogenous appearing hypertrophic stromal nodules, without suspicious lesion. M edian lobe hypertrophy with protrusion into the base of the bladder. (PI-RADS 2) PERIPHERAL ZONE (PZ): Bilateral linear, indistinct wedgelike areas of low ADC, and low T2 signal, No evidence of masslike a bnormality, or localized perfusional hypervascularity, to further suggest a focus of clinically signi ficant prostate cancer. (PI-RADS 2) SEMINAL VESICLES (SV): Symmetric and unremarkable. PERIPROSTATIC TISSUES: Unremarkable. LYMPH NODES: No enlarged pelvic lymph node. REMAINING PELVIS: Mild eccentric left bladder wall thickening suggested however the bladder is incompletely distended. No abnormal free or organized intrapelvic fluid collection. No pathologic bowel dilation or mural thickening. No hernia visualized OSSEOUS STRUCTURES: No suspicious osseous abnormality. IMPRESSION: 1. No specific features for high-risk prostate cancer. Maximum PI-RADS score: 2. 2. Moderate BPH, estimated gland volume 71.54 (PSA density=0.08 ng/mL/mL) 3. No suspicious osseous lesion. No lymphadenopathy. No evidence of prostate adenocarcinoma involving the periprostatic tissues. 4. Some eccentric left bladder wall thickening on the left. Possibly due to chronic bladder outlet ob struction from prostatomegaly. Correlate with urinalysis and consider direct visualization. [facility], , 12/14/2024 9:40 AM
== END | disposition home or self-care (01) ==
LOC: RADMRIMAIN 07:00
PROVIDERS: ATTEND Urology
DX: N40.0 Benign prostatic hyperplasia without lower urinary tract symptoms (principal); N32.89 Other specified disorders of bladder; R97.20 Elevated prostate specific antigen [PSA]
CPT/HCPCS: 72197; A9585